=== PATIENT | male | born 1985 | race Caucasian/White ===

== ENCOUNTER 2022-05-11 07:31 | Day surgery (SDC) | payer OTHER ==
[2022-05-11] VITALS (141 sets, daily range): BP systolic 82–135; BP diastolic 36–97
[~2022-05-11] VITALS: Ht 167.6 cm; Wt 91.0 kg
--- NOTE | 2022-05-11 07:00 | NUR ---
PT ARRIVED TO ROOM 283. A&O X4, AMBULATORY WITH STEADY GAIT. PT ACCOMPAINED BY FAMILY. DISCUSSED POC AND SAFETY PRECAUTIONS. CONSENTS OBTAINED. ID BAND APPLIED. PT VERBALIZED UNDERSTANDING. VS OBTAINED. ORIENTED TO ROOM AND CALL LIGHT SYSTEM. CALL LIGHT WITHIN REACH. PT CHANGED INTO GOWN, COMPRESSION STOCKINGS, AND NON SKID SOCKS.
--- NOTE | 2022-05-11 07:27 | NUR ---
LAB AT BEDSIDE.
[2022-05-11 07:45] LABS: HEMATOCRIT 40.2 % (39.0-50.0); HEMOGLOBIN 13.8 g/dl (14.0-18.0); IMMATURE GRANULOCYTES 0.2 % (0.0-5.0); MEAN CELL VOLUME 90.1 fL CALC (80.0-100.0); MEAN CORPUSCULAR HGB 30.9 pG CALC (26.0-32.0); MEAN CORPUSCULAR HGB CONC 34.3 g/dL CAL (32.0-36.0); NEUT# 1.99 thou/uL (1.82-7.42); RED BLOOD COUNT 4.46 mill/uL (4.70-6.10); RED CELL DISTRI WIDTH 11.7 % (11.5-15.5)
[2022-05-11 08:02] LABS: ALBUMIN 3.9 g/dL (3.2-5.0); ALKALINE PHOSPHATASE 61 u/l (38-126); ANION GAP 8 (6-22 (CALC)); BILIRUBIN, TOTAL 0.6 mg/dL (0.0-1.4); BUN 16 mg/dL (9-20); BUN/CREATININE RATIO 23 (12-20 (CALC)); CARBON DIOXIDE 25 mmol/l (22-30); CHLORIDE 108 mmol/l (95-108); CREATININE 0.7 mg/dL (0.7-1.3); GFR FOR AFR.AMER. > 60 ML/MIN (>=60 (CALC)); GFR OTHER RACES > 60 ML/MIN (>=60 (CALC)); POTASSIUM 3.8 mmol/l (3.5-5.1); SGOT/AST 38 u/l (17-59); SODIUM 137 mmol/l (137-146); TOTAL PROTEIN 6.4 g/dL (6.3-8.2)
--- NOTE | 2022-05-11 08:11 | NUR ---
VS CALLED TO DR. DEWEY AT THIS TIME. NEW ORDERS RECEIVED WILL MEDICATE WHEN MEDICATIONS PROFILED AND CONTINUE TO MONITOR.
--- NOTE | 2022-05-11 09:50 | NUR ---
REPEAT VS CALLED TO DR. DEWEY. NEW ORDERS RECEIVED AT THIS TIME.
--- NOTE | 2022-05-11 11:50 | NUR ---
Induction Note Patient to [facility] procedure room. Time out performed at 1150. Patient placed on monitors, Robert hugger, bilateral wrist restraints applied for ET tube protection. Versed 5mg given IV push at 1151 Tourniquet applied to right arm Lidocaine 100mg given at 1152 IV push followed by Rocoronium 10mg at 1153 IV push and held for 90 seconds. Propofol bolus of 120 mg given at 1155 IV push. Succinylcholine 80mg given IV push at 1156. Smooth intubation with 7.5 ETT. Positive CO2. Positive Auscultation for air exchange. Patient placed on ventilator for spontaneous ventilation. Placed on Propofol IV drip at 1157. OG inserted. Positive air on auscultation. Positive gastric content. Stomach washed at this time.
--- NOTE | 2022-05-11 12:05 | NUR ---
OG close note Stomach washed at this time. Naltrexone 75 mg with Clonidine 0.2 mg via OG tube. OG will be clamped for 45 minutes.
--- NOTE | 2022-05-11 12:50 | NUR ---
OG open note OG open at this time. Gastric content draining into drainage bag. OG to drain for 45 minutes. Propofol will be titrated down based on patient.
--- NOTE | 2022-05-11 13:35 | NUR ---
OG close note Stomach washed at this time. Naltrexone 50 mg with Clonidine 0.1 mg via OG tube. OG will be clamped for 45 minutes.
--- NOTE | 2022-05-11 15:05 | NUR ---
OG close note Stomach washed at this time. Naltrexone 25 mg with Clonidine 0.2 mg via OG tube. OG will be clamped for 45 minutes.
--- NOTE | 2022-05-11 17:43 | NUR ---
OG close note Stomach washed at this time. Naltrexone 12.5 mg with Clonidine 0.2 mg via OG tube. OG will be clamped for 45 minutes.
--- NOTE | 2022-05-11 18:20 | NUR ---
Extubation note Closing medications given Benadryl 50mg IV push, Decadron 10mg IV push,Magnesium 4 grams IV, Zofran 8mg IV push, Octreotide 100mcg SC. Stomach washed out prior to extubation. Suctioned gastric content. OG removed. Patient extubated. Propofol Discontinued. Wrist restraints removed. Robert hugger Removed. See ANR Moderate sedate recovery record for further notes and assessment.
--- NOTE | 2022-05-11 19:30 | NUR ---
PATIENT RAISING VOICE IN BED. REDIRECTED BY STAFF. PATIENT COMPLAINED OF FEELING HOT. COOL COMPRESSES APPLIED AND FAN TURNED ON. ENGINE REPAIRER PRODUCTION IN ROOM WITH PATIENT. NON REBREATHER OBSERVED ON. OXYGEN SATS IN THE HIGH 90S. BED REMAINS IN LOW POSITION. BED ALARM ACTIVE FOR SAFETY REASONS.
--- NOTE | 2022-05-11 20:00 | NUR ---
RESPIRATORY IN ROOM. PATIENT REMAINS WITH PERIODS OF APNEA WITH OXYGEN SATS DROPPING. NONREBREATHER REAPPLIED BY RESPIRATORY. HEAD OF BED ELEVATED. PATIENT RESTING IN BED. BED REMAINS IN LOW POSTION. BED ALARM ACTIVE. MARBLE CARVER REMAINS SITTING OUTSIDE PATIENT DOOR FOR EASY MONITORING.
--- NOTE | 2022-05-11 23:00 | NUR ---
NOTIFIED . BLADDER SCANNED PATIENT 761CC URINE. ORDER RECEIVED TO STRAIGHT CATH. STRAIGHT CATH COMPLETE. 700CC CLEAR YELLOW URINE.
--- NOTE | 2022-05-11 23:58 | NUR ---
CALLED MD. INFORMED OF PATIENT YELLING COMPLAINING OF BILATERAL HANDS HURTING, '' ON FIRE ''. NEW ORDERS RECEIVED. SEE EMAR.
--- NOTE | 2022-05-12 00:34 | NUR ---
PATIENT YELLING OUT. ''TALKING TO SELF AND CUSSING''. RECEIVED PRN ATIVAN FOR AGGITATION.
--- NOTE | 2022-05-12 01:05 | NUR ---
NON REBREATHER BACK ON PATIENT. DESATS QUICKLY WHEN SLEEPING. PATIENT WAKES SELF UP AND APPEARS TO STARTLE SELF THEN FALLS BACK ASLEEP. OXYGEN SATS IN HIGH 90S WITH NON REBREATHER ON. BED REMAINS IN LOW POSITION. BED ALARM ACTIVE.
--- NOTE | 2022-05-12 02:26 | NUR ---
PATIENT KEPT CALLING TABLE WORKER PACKAGER VOICING HE NEEDED TO URINATE. EVERY TIME SHE WENT IN THE ROOM TO HELP HIM, HE WOULD CHANGE HIS MIND THEN CALL HER BACK IN MINUTYES LATER. PATIENT REDIRECTED AND ENCOURAGED TO TRY TO URINATE IN URINAL. PATIENT STOOD WITH 2 ASSIST AND VOICED 700CC CLEAR YELLOW URINE.
[2022-05-12 03:54] VITALS: BP 113/66
--- NOTE | 2022-05-12 04:57 | NUR ---
PATIENT IN BED MOVING AROUND. RECEIVED ALL SCHEDULED 4AM MEDS WITHOUT DIFFICULTY. THIS NURSE SIMON MORNING LABS ON PATIENT. TOLERATED WELL. BED REMAINS IN LOW POSITION. BED ALARM REMAINS ACTIVE. PATIENT VOIDING WELL USING URINAL.
[2022-05-12 05:09] LABS: IMMATURE GRANULOCYTES 0.1 % (0.0-5.0); MEAN CELL VOLUME 85.3 fL CALC (80.0-100.0); MEAN CORPUSCULAR HGB 30.8 pG CALC (26.0-32.0); MEAN CORPUSCULAR HGB CONC 36.1 g/dL CAL (32.0-36.0); NEUT# 10.26 thou/uL (1.82-7.42); RED BLOOD COUNT 4.22 mill/uL (4.70-6.10); RED CELL DISTRI WIDTH 11.6 % (11.5-15.5)
[2022-05-12 07:06] LABS: ALBUMIN 3.7 g/dL (3.2-5.0); ALKALINE PHOSPHATASE 59 u/l (38-126); BILIRUBIN, TOTAL 0.8 mg/dL (0.0-1.4); BUN 14 mg/dL (9-20); BUN/CREATININE RATIO 20 (12-20 (CALC)); CHLORIDE 110 mmol/l (95-108); CREATININE 0.7 mg/dL (0.7-1.3); GFR FOR AFR.AMER. > 60 ML/MIN (>=60 (CALC)); GFR OTHER RACES > 60 ML/MIN (>=60 (CALC)); MAGNESIUM 1.8 mg/dL (1.6-2.3); POTASSIUM 3.9 mmol/l (3.5-5.1); SGOT/AST 37 u/l (17-59); SODIUM 137 mmol/l (137-146); TOTAL PROTEIN 6.1 g/dL (6.3-8.2)
[2022-05-12 07:09] LABS: ANION GAP 14 (6-22 (CALC)); CARBON DIOXIDE 17 mmol/l (22-30)
[2022-05-12 07:51] VITALS: BP 110/55
--- NOTE | 2022-05-12 09:20 | NUR ---
RECEIVED REPORT FROM EMILY OVIEDO RN. PATIENT RESTING IN BED WITH EYES CLOSED IN LOW SEMI-RANDALL'S POSITION. ASSESSMENT COMPLETED. PATIENT IS A&O. BED IN LOWEST POSITION, BED ALARM ACTIVATED. CALL LIGHT AND BEDSIDE TABLE WITHIN REACH.
[2022-05-12 10:15] VITALS: BP 131/69
--- NOTE | 2022-05-12 12:02 | NUR ---
PATIENT LAYING IN BED COMPLAINED OF BAKC PAIN. TRANSFERED PATIENT FROM BED TO RECLINER, PATIENT DID NOT TOLERATED WELL AND ASKED TO BE PUT BACK IN BED. 30MG OF TORADOL WERE ADMINISTERED PER DR. DEWEY.
--- NOTE | 2022-05-12 12:22 | NUR ---
PT AGITATED YELLING AND CUSSING AT STAFF. PT COMPLAINS OF PAIN AND SEVERE NAUSEA. PT STATES " JUST GIVE ME MY OPIODS." PT EDUCATED IN TREATMENT AND OTHER ALTERNATIVES. PT MEDICATED PER EMAR. PT APPEARS TO TOLERATE WELL.
--- NOTE | 2022-05-12 13:16 | NUR ---
PT EDUCATED ON DC INSTRUCTIONS. VERBLAIZED UNDERSTANDING BUT REFUSED TO SIGN. RN TO WITNESS. PT INFORMED OF EDUACTION TO BE PROVIDED BY ANR STAFF. IV REMOVED WITH [facility] INTACT. PT TO GET DRESSED.
--- NOTE | 2022-05-12 14:05 | NUR ---
Discharge instructions given. Patient verbalizes understanding of same. Discharged in stable condition via Ambulatory to Home with staff. All belongings sent with pt.
== END 2022-05-12 14:04 | disposition home or self-care (01) | DRG 897 ==
LOC: ANR 07:31 → MS2 07:32 → ANR 12:38
PROVIDERS: ATTEND Anesthesiology
DX: F11.20 Opioid dependence, uncomplicated (principal)
CPT/HCPCS: J2060; J2354; J3475